=== PATIENT | male | born 1955 | race Caucasian/White ===

== ENCOUNTER 2019-09-09 19:12 | Emergency (ER) | payer OTHER ==
[2019-09-09] MEDS ORDERED: ORPHENADRINE CITRATE 60 MG/2 ML ML ONE (19:50)
[2019-09-09] MEDS ORDERED: DIPH,PERTUSS(ACELL),TET VAC/PF 0.5 ML DISP.SYRIN IM ONE (19:50)
[2019-09-09] MEDS ORDERED: oxyCODONE/ACETAMINOPHEN 5/325 TABLET PO ONE (19:50)
--- NOTE | 2019-10-02 15:06 | Diagnostic Imaging Report ---
JESSICA LEWIS [facility] [address] [facility].[address] [address] Report Submission Date: Sep 09, 2019 8:27:25 PM CDT Patient Study Name: AARON YANES Date: Sep 09, 2019 7:46:46 PM CDT Modality Type: CT\SR Gender: M Description: [facility] : 57 Institution: [facility] Physician: JESSICA LEWIS CT cervical spine HISTORY Fall, neck pain TECHNIQUE Images through the cervical spine were obtained without contrast. FINDINGS There is no fracture, subluxation or abnormal bone destruction. The vertebral bodies are of normal height. Loss of disk height with anterior osteophyte formation is noted at C4-5, C5-6 and C6-7. Degenerative changes of the facet joints are present at all levels. Mild canal stenosis is noted at C6-7. Prevertebral soft tissues are normal. IMPRESSION Multilevel degenerative change but no acute abnormality. Electronically signed on Sep 09, 2019 8:27:25 PM CDT by: Serafin HAYES
--- NOTE | 2019-10-02 15:08 | Diagnostic Imaging Report ---
JESSICA LEWIS [facility] [address] [facility].[address] [address] Report Submission Date: Sep 09, 2019 8:29:06 PM CDT Patient Study Name: AARON YANES Date: Sep 09, 2019 7:50:38 PM CDT Modality Type: CT\SR Gender: M Description: [facility] : 57 Institution: [facility] Physician: JESSICA LEWIS CT thoracic spine HISTORY Fall, back pain TECHNIQUE Images through the thoracic spine were obtained without contrast. FINDINGS There is no fracture, subluxation or abnormal bone production or destruction. The vertebral bodies and intervertebral disk spaces are of normal height. Facet joints and spinal canal are adequate. Anterior osteophyte formation is noted at all levels. IMPRESSION Mild multilevel degenerative change but no acute abnormality. Electronically signed on Sep 09, 2019 8:29:06 PM CDT by: Serafin HAYES
--- NOTE | 2019-10-02 15:10 | Diagnostic Imaging Report ---
JESSICA LEWIS [facility] [address] [facility] [address] [address] Report Submission Date: Sep 09, 2019 8:51:00 PM CDT Patient Study Name: AARON YANES Date: Sep 09, 2019 8:13:00 PM CDT Modality Type: CT\SR Gender: M Description: CT BRAIN W/O : 57 Institution: [facility] Physician: JESSICA LEWIS CT head without contrast HISTORY Fall, loss of consciousness TECHNIQUE Images through the brain were obtained without contrast. FINDINGS No mass, midline shift, hydrocephalus or hemorrhage is present. The ventricles are normal. No extra-axial fluid collection is identified. IMPRESSION No acute intracranial process. Electronically signed on Sep 09, 2019 8:51:00 PM CDT by: Serafin HAYES
== END 2019-09-09 21:13 ==
LOC: ED 19:12
DX: M54.9 Dorsalgia, unspecified (principal); S00.91XA Abrasion of unspecified part of head, initial encounter; W01.10XA Fall on same level from slipping, tripping and stumbling with subsequent striking against unspecified object, initial encounter
CPT/HCPCS: 70450; 72128; 90715; 99282; 99283; A9270; J2360